=== PATIENT | female | born 1985 | race African-American/Black ===

== ENCOUNTER 2017-03-27 09:19 | Emergency (ER) | payer OTHER ==
[2017-03-27 09:39] VITALS: TEMP 98.4; BMI 29.0
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
[2017-03-27] MEDS ORDERED: IBUPROFEN 600 MG TABLET (FP) PO ONE ×2 (09:56→10:09)
[2017-03-27] MEDS ORDERED: ACETAMINOPHEN 500 MG TABLET (FP) PO ONE (09:56)
[2017-03-27] MEDS ORDERED: ACETAMINOPHEN 325 MG TABLET (FP) ONE (10:08)
[2017-03-27 13:40] VITALS: BP 98/71; PULSE 73
== END 2017-03-27 13:40 | disposition home or self-care (01) ==
LOC: JER 09:19
DX: M54.2 Cervicalgia (principal); V49.49XA Driver injured in collision with other motor vehicles in traffic accident, initial encounter; Y92.414 Local residential or business street as the place of occurrence of the external cause; Y93.89 Activity, other specified; Y99.8 Other external cause status
CPT/HCPCS: 36415; 70450-TC; 72125-TC; 84703; 99283-25